=== PATIENT | female | born 1975 | race Caucasian/White ===

== ENCOUNTER 2018-03-20 08:00 | Outpatient (CLI) | payer OTHER ==
[2018-03-20 15:03] LABS: ALBUMIN 4.4 g/dL (3.2-5.5); ALBUMIN/GLOBULIN RATIO 1.8 (1.0-2.2); ALKALINE PHOSPHATASE 33 IU/L (42-121); ALT ALANINE AMINOTRANSFERASE 19 IU/L (10-60); AST ASPARTATE AMINOTRANSFERASE 19 IU/L (10-42); BILIRUBIN,TOTAL 0.7 mg/dL (0.2-1.0); BUN - BLOOD UREA NITROGEN 11 mg/dL (6-20); CALCIUM 8.9 mg/dL (8.5-10.3); CARBON DIOXIDE - CO2 28 mmol/L (21-32); CHLORIDE 101 mmol/L (101-111); CHOL/HDL RATIO 3.5 (<4.4); CHOLESTEROL 192 mg/dL; CREATININE 0.9 mg/dL (0.4-1.0); GFR - MDRD 69 (>89); GLUCOSE 90 mg/dL (70-100); HDL CHOLESTEROL 55 mg/dL; LDL CHOLESTEROL,CALCULATED 127 mg/dL; LDL/HDL RATIO 2.3 (<4.4); SODIUM 135 mmol/L (135-145); TOTAL PROTEIN 6.9 g/dL (6.7-8.2); VLDL CHOLESTEROL 10 mg/dL
[2018-03-20 15:13] LABS: BASOPHILS # (AUTO) 0.1 10^3/uL (0.0-0.1); BASOPHILS % (AUTO) 0.8 %; EOSINOPHILS # (AUTO) 0.2 10^3/uL (0.0-0.7); EOSINOPHILS % (AUTO) 2.7 %; HGB - HEMOGLOBIN 12.9 g/dL (12.0-16.0); LYMPHOCYTES # (AUTO) 3.3 10^3/uL (1.5-3.5); LYMPHOCYTES % (AUTO) 42.2 %; MEAN CORPUSCULAR HEMOGLOBIN 31.1 pg (27.0-31.0); MEAN CORPUSCULAR HGB CONC 34.8 g/dL (32.0-36.0); MEAN CORPUSCULAR VOLUME 89.4 fL (81.0-99.0); MEAN PLATELET VOLUME 8.4 fL (7.9-10.8); MONOCYTES # (AUTO) 0.5 10^3/uL (0.0-1.0); MONOCYTES % (AUTO) 5.9 %; NEUTROPHILS # (AUTO) 3.8 10^3/uL (1.5-6.6); NEUTROPHILS % (AUTO) 48.4 %; PLT - PLATELET COUNT 277 10^3/uL (130-450); RED BLOOD COUNT 4.16 10^6/uL (4.20-5.40); RED CELL DISTRIBUTION WIDTH 12.3 % (12.0-15.0); WHITE BLOOD COUNT 7.8 x10^3/uL (4.8-10.8)
== END 2018-03-20 23:59 | disposition home or self-care (01) ==
LOC: LAB.WCP 08:00
PROVIDERS: ATTEND Physician Assistant Medical
DX: Z00.00 Encounter for general adult medical examination without abnormal findings (principal)
CPT/HCPCS: 36415; 80053; 80061; 83721; 84443; 85025

== ENCOUNTER 2018-07-10 16:52 | Outpatient (CLI) | payer BC, OTHER | END 2018-07-10 16:53 | disposition home or self-care (01) | LOC: DI 16:52 | DX: Z12.31 Encounter for screening mammogram for malignant neoplasm of breast (principal) | CPT/HCPCS: 77063; 77067 ==

== ENCOUNTER 2019-03-19 07:11 | Outpatient (CLI) | payer BC, OTHER ==
[2019-03-19 13:34] LABS: BASOPHILS # (AUTO) 0.1 10^3/uL (0.0-0.1); BASOPHILS % (AUTO) 1.1 %; EOSINOPHILS # (AUTO) 0.1 10^3/uL (0.0-0.7); EOSINOPHILS % (AUTO) 1.9 %; HGB - HEMOGLOBIN 12.9 g/dL (12.0-16.0); LYMPHOCYTES # (AUTO) 3.3 10^3/uL (1.5-3.5); LYMPHOCYTES % (AUTO) 44.2 %; MEAN CORPUSCULAR HEMOGLOBIN 30.3 pg (27.0-31.0); MEAN CORPUSCULAR HGB CONC 33.5 g/dL (32.0-36.0); MEAN CORPUSCULAR VOLUME 90.4 fL (81.0-99.0); MEAN PLATELET VOLUME 10.3 fL (7.9-10.8); MONOCYTES # (AUTO) 0.5 10^3/uL (0.0-1.0); MONOCYTES % (AUTO) 7.1 %; NEUTROPHILS # (AUTO) 3.3 10^3/uL (1.5-6.6); NEUTROPHILS % (AUTO) 45.4 %; PLT - PLATELET COUNT 256 10^3/uL (130-450); RED BLOOD COUNT 4.26 10^6/uL (4.20-5.40); RED CELL DISTRIBUTION WIDTH 11.8 % (12.0-15.0); WHITE BLOOD COUNT 7.4 x10^3/uL (4.8-10.8)
[2019-03-19 14:10] LABS: ALBUMIN 4.5 g/dL (3.2-5.5); ALBUMIN/GLOBULIN RATIO 1.6 (1.0-2.2); ALKALINE PHOSPHATASE 35 IU/L (42-121); ALT ALANINE AMINOTRANSFERASE 30 IU/L (10-60); AST ASPARTATE AMINOTRANSFERASE 25 IU/L (10-42); BILIRUBIN,TOTAL 1.1 mg/dL (0.2-1.0); BUN - BLOOD UREA NITROGEN 12 mg/dL (6-20); CALCIUM 9.2 mg/dL (8.5-10.3); CARBON DIOXIDE - CO2 25 mmol/L (21-32); CHLORIDE 105 mmol/L (101-111); CHOL/HDL RATIO 3.2 (<4.4); CHOLESTEROL 213 mg/dL; CREATININE 0.8 mg/dL (0.4-1.0); GFR - MDRD 79 (>89); GLUCOSE 94 mg/dL (70-100); HDL CHOLESTEROL 66 mg/dL; LDL CHOLESTEROL,CALCULATED 134 mg/dL; SODIUM 138 mmol/L (135-145); TOTAL PROTEIN 7.3 g/dL (6.7-8.2); VLDL CHOLESTEROL 13 mg/dL
[2019-03-19 14:13] LABS: FERRITIN 16.8 ng/mL (11.0-306.8)
== END 2019-03-19 23:59 | disposition home or self-care (01) ==
LOC: LAB.WCP 07:11
PROVIDERS: ATTEND Physician Assistant Medical
DX: Z00.00 Encounter for general adult medical examination without abnormal findings (principal); Z13.89 Encounter for screening for other disorder; M25.50 Pain in unspecified joint; G43.909 Migraine, unspecified, not intractable, without status migrainosus; R53.83 Other fatigue
CPT/HCPCS: 36415; 80053; 80061; 82306; 82607; 82728; 83721; 84443; 85025

== ENCOUNTER 2019-09-05 15:38 | Outpatient (CLI) | payer OTHER ==
--- NOTE | 2019-09-06 08:13 | Mammography Report ---
BILATERAL DIGITAL SCREENING MAMMOGRAM 3D/2D: 09/05/2019 CLINICAL: Routine screening. Comparison is made to exams dated: 07/10/2018 mammogram and 03/16/2017 ultrasound - [facility]. The tissue of both breasts is extremely dense, which lowers the sensitivity of mammogra phy. No significant masses, calcifications, or other findings are seen in either breast. There has been no significant interval change. IMPRESSION: NEGATIVE There is no mammographic evidence of malignancy. A 1 year screening mammogram is recommended. This exam was interpreted at Station ID: [id number]. NOTE: For mammograms, a report in lay terms will be sent to the patient. Approximately 15% of breast malignancies will not be visualized mammographically. In the management of a palpable breast mass, a negative mammogram must not discourage biopsy of a clinically suspicious lesion. Electronically Signed By: Kacie kline/soha:09/05/2019 16:15:18 ACR BI-RADS Category 1: Negative 3341F PARENCHYMAL PATTERN: (VD) - The breast(s) demonstrate(s) extremely dense parenchyma, limiting the sen sitivity of mammography. BI-RADS CATEGORY: (1) - 1 RECOMMENDATION: (ANNUAL) - Recommend routine annual screening mammography. [id number] 1 year screening LATERALITY: (B)
== END 2019-09-05 15:39 | disposition home or self-care (01) ==
LOC: DI 15:38
DX: Z12.31 Encounter for screening mammogram for malignant neoplasm of breast (principal)
CPT/HCPCS: 77063; 77067

== ENCOUNTER 2020-10-21 08:39 | Day surgery (SDC) | payer OTHER ==
[2020-10-21] MEDS ORDERED: LACTATED RINGERS 1,000 ML IV ONE ×2 (08:52→11:13)
[2020-10-21 09:01] LABS: HCG UR QUAL NEGATIVE
--- NOTE | 2020-10-21 09:40 | ANESTHESIA ---
Pre-Anesthesia VS, & Labs - Diagnosis family history of colon cancer, blood in stool - Procedure colonoscopy Vital Signs: Temp Pulse Resp BP Pulse Ox 36.0 C L 58 L 18 121/81 H 100 10/21/20 09:10 10/21/20 09:10 10/21/20 09:10 10/21/20 09:10 10/21/20 09:10 Height: 5 ft 8 in Weight (kg): 71.8 kg Body Mass Index: 24.0 BMI Classification: Healthy weight - NPO >8 hours - Is Patient ?: No Home Medications and Allergies Home Medications: Ambulatory Orders Magnesium Citrate 400 mg PO DAILY 10/10/20 [place]-3/Dha/Epa/Fish Oil [Fish Oil [place]-3 EC 1,200 mg] 1 each PO DAILY 10/10/20 Prasterone (Dhea) [Dhea] 25 mg PO DAILY 10/10/20 Zolmitriptan [Zomig] 5 mg PO PRN PRN 10/10/20 Cholecalciferol [Vitamin D3] 1 tab PO DAILY 10/21/20 Magnesium Citrate 400 mg PO DAILY 10/10/20 [place]-3/Dha/Epa/Fish Oil [Fish Oil [place]-3 EC 1,200 mg] 1 each PO DAILY 10/10/20 Prasterone (Dhea) [Dhea] 25 mg PO DAILY 10/10/20 Zolmitriptan [Zomig] 5 mg PO PRN PRN 10/10/20 Cholecalciferol [Vitamin D3] 1 tab PO DAILY 10/21/20 Allergies/Adverse Reactions: Allergies Allergy/AdvReac Type Severity Reaction Status Date / Time caffeine AdvReac migraine Verified 10/10/20 07:48 erythromycin base AdvReac Nausea Verified 10/10/20 07:48 Anes History & Medical History - Anesthetic History Anesthesia Complications: reports: No previous complications - Medical History Cardiovascular: reports: None Pulmonary: reports: Sleep apnea, CPAP use Gastrointestinal: reports: GI bleed, Chronic constipation, Other Urinary: reports: None Musculoskeletal: reports: Fatigue, Chronic back pain Endocrine/Autoimmune: reports: None Skin: reports: None History of Cancer?: No - Surgical History General: reports: Appendectomy Exam General: Alert, Oriented x3 Dental: WNL Mouth Opening: Greater than 4 Fingerbreadths Mallampati classification: II Thyromental Distance: greater than 6 cm Respiratory: Lungs clear Cardiovascular: Regular rate Plan Anesthesia Type: Total IV Consent for Procedure(s) Verified and Reviewed: Yes Code Status: Attempt Resuscitation ASA classification: 2-Mild systemic disease Is this case an emergency?: No
[2020-10-21] MEDS ORDERED: PROPOFOL 200 MG/20 ML VIAL IVP ONE ×2 (10:28→10:58)
[2020-10-21] MEDS ORDERED: LIDOCAINE-PF 2% 10 ML AMP SUBQ ONE (10:38)
[2020-10-21 12:01] VITALS: BP 116/55
--- NOTE | 2020-10-21 15:26 | ANESTHESIA POST OP EVALUATION ---
Anesthesia Post Eval - Post Anesthesia Eval Vitals: Last Vital Signs Temp 36.3 C L 10/21/20 11:45 Pulse 55 L 10/21/20 11:45 Resp 16 10/21/20 11:45 BP 116/55 L 10/21/20 11:45 Pulse Ox 98 10/21/20 11:45 CV Function Including HR & BP: Stable Pain Control: Satisfactory Nausea & Vomiting: Negative Mental Status: Baseline Respiratory Status: Airway Patent Hydration Status: Satisfactory Anesthesia Complications: None
== END 2020-10-21 08:40 | disposition home or self-care (01) ==
LOC: SDS 08:39
PROVIDERS: ATTEND Surgery
PROC: 0DBC8ZX Excision of Ileocecal Valve, Via Natural or Artificial Opening Endoscopic, Diagnostic (ICD-10-PCS; principal; 2020-10-21 10:15)
DX: K57.30 Diverticulosis of large intestine without perforation or abscess without bleeding (principal); K64.8 Other hemorrhoids; K64.4 Residual hemorrhoidal skin tags; K59.09 Other constipation; G47.30 Sleep apnea, unspecified; F41.9 Anxiety disorder, unspecified; R53.83 Other fatigue; Z80.0 Family history of malignant neoplasm of digestive organs
CPT/HCPCS: 45380; 81025; J7120

== ENCOUNTER 2020-11-14 14:36 | Outpatient (CLI) | payer OTHER ==
--- NOTE | 2020-11-17 15:41 | Mammography Report ---
BILATERAL DIGITAL SCREENING MAMMOGRAM 3D/2D: 11/14/2020 CLINICAL: Routine screening. Comparison is made to exams dated: 09/05/2019 mammogram, 07/10/2018 mammogram, 03/16/2017 ultrasound, 06/03/2010 mammogram, and 06/03/2010 ultrasound - [facility]. The tissue of both aruna asts is extremely dense, which lowers the sensitivity of mammography. No significant masses, calcifications, or other findings are seen in either breast. There has been no significant interval change. IMPRESSION: NEGATIVE There is no mammographic evidence of malignancy. A 1 year screening mammogram is recommended. This exam was interpreted at Station ID: [id number]. NOTE: For mammograms, a report in lay terms will be sent to the patient. Approximately 15% of breast malignancies will not be visualized mammographically. In the management of a palpable breast mass, a negative mammogram must not discourage biopsy of a clinically suspicious lesion. Electronically Signed By: Enrique Reyes M.D. aty/soha:11/17/2020 07:13:31 ACR BI-RADS Category 1: Negative 3341F PARENCHYMAL PATTERN: (VD) - The breast(s) demonstrate(s) extremely dense parenchyma, limiting the sen sitivity of mammography. BI-RADS CATEGORY: (1) - 1 RECOMMENDATION: (ANNUAL) - Recommend routine annual screening mammography. [id number] 1 year screening LATERALITY: (B)
== END 2020-11-14 14:37 | disposition home or self-care (01) ==
LOC: DI 14:36
DX: Z12.31 Encounter for screening mammogram for malignant neoplasm of breast (principal)

== ENCOUNTER 2022-02-04 10:43 | Outpatient (CLI) | payer OTHER ==
--- NOTE | 2022-02-05 09:54 | Ultrasound Report ---
LIMITED ULTRASOUND OF RIGHT BREAST: 02/04/2022 CLINICAL: Patient returns today to evaluate a focal asymmetry in the right breast. Comparison is made to exams dated: 02/04/2022 mammogram, 01/01/2022 mammogram, 11/14/2020 mammogram, 09/05/2019 mammogram, 07/10/2018 mammogram, and 03/16/2017 ultrasound - [facility]. Color flow ultrasound of the right breast 9-10 o'clock region was performed. Lopez scale images of th e real-time examination were reviewed. There is a 0.9 cm x 0.5 cm x 7.9 cm wider than tall oval cyst with a smooth internal wall in the righ t breast at 10 o'clock middle depth. This oval cyst is hypoechoic with a well-defined boundary and i nternal echoes. This correlates with mammography findings. Color flow imaging demonstrates that the re is no vascularity present. There also is a benign 1.9 cm x 1 cm x 1.6 cm wider than tall oval cyst in the right breast at 9 o'cl ock posterior depth 10 cm from the nipple. This oval cyst is anechoic with a well-defined boundary a nd posterior acoustic enhancement. This correlates as an incidental finding. Color flow imaging dem onstrates that there is no vascularity present. Additionally, there is a benign 1.1 cm x 0.5 cm x 0.9 cm wider than tall oval cyst in the right breas t at 9 o'clock posterior depth 8 cm from the nipple. This oval cyst is anechoic with a well-defined boundary and posterior acoustic enhancement. This correlates with mammography findings. Color flow imaging demonstrates that there is no vascularity present. IMPRESSION: PROBABLY BENIGN The 1.9 cm x 1 cm x 1.6 cm wider than tall oval cyst in the right breast at 9 o'clock posterior depth is consistent with a simple cyst and is benign. The 1.1 cm x 0.5 cm x 0.9 cm wider than tall oval cyst in the right breast at 9 o'clock posterior dep th is consistent with a simple cyst and is benign. The 0.9 cm x 0.5 cm x 7.9 cm wider than tall oval cyst in the right breast at 10 o'clock middle depth resembles a complicated cyst versus cluster of cysts and is probably benign. A follow-up right madi mogram and an ultrasound in 6 months is recommended to demonstrate stability of this complicated cyst . No follow up required for the benign simple cysts. Findings and recommendations were conveyed to the patient during today's evaluation. This exam was interpreted at Station ID: [id number]. Electronically Signed By: Enrique Reyes M.D. aty/:02/04/2022 13:21:49 Ultrasound BI-RADS: 3 Probably benign BI-RADS CATEGORY: (3) - 3 Mammo and [place] [id number] 6 month follow-up LATERALITY: (R)
--- NOTE | 2022-02-05 09:54 | Mammography Report ---
UNILATERAL RIGHT DIGITAL DIAGNOSTIC MAMMOGRAM 3D/2D WITH SPOT COMPRESSION: 02/04/2022 CLINICAL: Patient returns today to evaluate a focal asymmetry in the right breast. Comparison is made to exams dated: 01/01/2022 mammogram, 11/14/2020 mammogram, 09/05/2019 mammogram, mammogram, and 06/03/2010 mammogram - [facility]. The right breast is extremely dense, which lowers the sensitivity of mammography (category d />75% gl andular tissue). There is a 1.2 cm oval focal asymmetry in the right breast at 9 o'clock posterior depth. This is see n in additional views. There also is a 1 cm oval equal density focal asymmetry in the right breast at 10 o'clock middle dept h. No other significant masses or calcifications are seen in the breast. IMPRESSION: INCOMPLETE: NEEDS ADDITIONAL IMAGING EVALUATION The 1.2 cm oval focal asymmetry in the right breast at 9 o'clock posterior depth resembles a cyst or a lymph node and is indeterminate. An ultrasound is recommended for further evaluation and is schedul ed to immediately follow this examination. The 1 cm oval equal density focal asymmetry in the right breast at 10 o'clock middle depth resembles a cyst or a lymph node and is indeterminate. An ultrasound is recommended for further evaluation and is scheduled to immediately follow this examination. Based on Tyrer-Cuzick model (a risk assessment model), the patient's lifetime risk is 20.7% and her 1 0 year risk is 3.7%. If a patient has an elevated risk, a more comprehensive evaluation should be con sidered and/or a referral to a genetic counselor. The [place] [employer], [employer] [place] [employer], and NCCN Guidelines advise the consideration of Breast MRI as an adjunct to screening mammog eli in patients whose "Lifetime risk to develop breast cancer" is 20% or higher. This exam was interpreted at Station ID: [id number]. NOTE: For mammograms, a report in lay terms will be sent to the patient. Approximately 15% of breast malignancies will not be visualized mammographically. In the management of a palpable breast mass, a negative mammogram must not discourage biopsy of a clinically suspicious lesion. Electronically Signed By: Enrique Reyes M.D. aty/:02/04/2022 13:14:55 ACR BI-RADS Category 0: Incomplete 3340F PARENCHYMAL PATTERN: (VD) - The breast(s) demonstrate(s) extremely dense parenchyma, limiting the sen sitivity of mammography. BI-RADS CATEGORY: (0) - 0 Ultrasound [id number] Immediate follow-up LATERALITY: (R)
== END 2022-02-04 10:44 | disposition home or self-care (01) ==
LOC: DI 10:43
PROVIDERS: ATTEND Family Medicine
DX: R92.8 Other abnormal and inconclusive findings on diagnostic imaging of breast (principal); N60.01 Solitary cyst of right breast

== ENCOUNTER 2022-09-08 07:44 | Outpatient (CLI) | payer OTHER ==
--- NOTE | 2022-09-08 10:37 | Mammography Report ---
UNILATERAL RIGHT DIGITAL DIAGNOSTIC MAMMOGRAM 3D/2D: 09/08/2022 CLINICAL: Patient returns for a 6 month follow up of the right breast. Comparison is made to exams dated: 02/04/2022 mammogram, 01/01/2022 mammogram, 11/14/2020 mammogram, and 09/05/2019 mammogram - [facility]. The right breast is extremely dense, which lowers the sensitivity of mammography (category d />75% gl andular tissue). There is a 1 cm oval equal density focal asymmetry in the right breast at 10 o'clock middle depth. T his is not significantly changed. There also is an asymmetry measuring 1.9 cm in the right breast posterior depth superior region seen on the mediolateral oblique view only. Finding is seen only on tomography. No other significant masses or calcifications are seen in the breast. IMPRESSION: INCOMPLETE: NEEDS ADDITIONAL IMAGING EVALUATION The 1 cm oval equal density focal asymmetry in the right breast at 10 o'clock middle depth is indeter minate. The asymmetry in the right breast posterior depth superior region resembles a cyst and is indetermina te. A targeted ultrasound is recommended and will immediately follow. Based on Tyrer-Cuzick model (a risk assessment model), the patient's lifetime risk is 20.7% and her 1 0 year risk is 3.9%. If a patient has an elevated risk, a more comprehensive evaluation should be con sidered and/or a referral to a genetic counselor. The [place] [employer], [employer], and NCCN Guidelines advise the consideration of Breast MRI as an adjunct to screening mammog eli in patients whose "Lifetime risk to develop breast cancer" is 20% or higher. This exam was interpreted at Station ID: [id number]. NOTE: For mammograms, a report in lay terms will be sent to the patient. Approximately 15% of breast malignancies will not be visualized mammographically. In the management of a palpable breast mass, a negative mammogram must not discourage biopsy of a clinically suspicious lesion. Electronically Signed By: Deo Andujar M.D. slc/:09/08/2022 08:26:23 ACR BI-RADS Category 0: Incomplete 3340F PARENCHYMAL PATTERN: (VD) - The breast(s) demonstrate(s) extremely dense parenchyma, limiting the sen sitivity of mammography. BI-RADS CATEGORY: (0) - 0 Ultrasound [id number] Immediate follow-up LATERALITY: (B)
--- NOTE | 2022-09-08 10:37 | Ultrasound Report ---
LIMITED ULTRASOUND OF RIGHT BREAST: 09/08/2022 CLINICAL: Patient returns for a 6 month follow up of the right breast. Comparison is made to exams dated: 09/08/2022 mammogram, 02/04/2022 ultrasound, 02/04/2022 mammogram, 01/01/2022 mammogram, 11/14/2020 mammogram, and 09/05/2019 mammogram - [facility]. Color flow and real-time ultrasound of the right breast 10 o'clock and 12 o'clock regions were perfor med. Lopez scale images of the real-time examination were reviewed. There is a stable 0.8 cm x 0.7 cm x 0.6 cm oval cyst in the right breast at 10 o'clock posterior dept h 7 cm from the nipple. This oval cyst is anechoic with a well-defined boundary, internal echoes, an d posterior acoustic enhancement. This correlates with mammography findings. Color flow imaging dem onstrates that there is no vascularity present. There also is a benign 2 cm x 1.8 cm x 0.9 cm oval simple cyst in the right breast at 12 o'clock midd le depth 3 cm from the nipple. This oval simple cyst is anechoic. This correlates with mammography findings. Color flow imaging demonstrates that there is no vascularity present. IMPRESSION: PROBABLY BENIGN Stable 0.8 cm complicated cyst in the right breast at 10 o'clock posterior depth is probably benign. The 2 cm simple cyst in the right breast at 12 o'clock middle depth is benign. A follow-up mammogram and an ultrasound in 6 months is recommended to demonstrate stability. Patient will be due for left breast mammogram at that time. Exam findings were conveyed to the patient. This exam was interpreted at Station ID: [id number]. Electronically Signed By: Deo Andujar M.D. slc/:09/08/2022 09:22:50 Ultrasound BI-RADS: 3 Probably benign BI-RADS CATEGORY: (3) - 3 Mammo and US [id number] 6 month follow-up LATERALITY: (B)
== END 2022-09-08 07:45 | disposition home or self-care (01) ==
LOC: DI 07:44
PROVIDERS: ATTEND Family Medicine
DX: N60.01 Solitary cyst of right breast (principal)

== ENCOUNTER 2023-04-01 08:13 | Outpatient (CLI) | payer OTHER ==
--- NOTE | 2023-04-01 12:48 | Mammography Report ---
BILATERAL DIGITAL DIAGNOSTIC MAMMOGRAM 3D/2D: 04/01/2023 CLINICAL: Patient returns for a 6 month follow up of the right breast, due for bilateral exam. Comparison is made to exams dated: 02/04/2022 mammogram, 09/08/2022 mammogram, 01/01/2022 mammogram, 11/14/2020 mammogram, and 09/05/2019 mammogram - [facility]. Both breasts are extremely dense, which lowers the sensitivity of mammography (category d />75% gland ular tissue). There is an oval equal density focal asymmetry in the right breast at 10 o'clock middle depth. This is not significantly changed. No other significant masses, calcifications, or other findings are seen in either breast. IMPRESSION: INCOMPLETE: NEEDS ADDITIONAL IMAGING EVALUATION The oval equal density focal asymmetry in the right breast is indeterminate. A targeted ultrasound is recommended and will immediately follow. Based on Tyrer-Cuzick model (a risk assessment model), the patient's lifetime risk is 20.7% and her 1 0 year risk is 4.2%. If a patient has an elevated risk, a more comprehensive evaluation should be con sidered and/or a referral to a genetic counselor. The [place] [employer], [place], and NCCN Guidelines advise the consideration of Breast MRI as an adjunct to screening mammog eli in patients whose "Lifetime risk to develop breast cancer" is 20% or higher. This exam was interpreted at Station ID: [id number]. NOTE: For mammograms, a report in lay terms will be sent to the patient. Approximately 15% of breast malignancies will not be visualized mammographically. In the management of a palpable breast mass, a negative mammogram must not discourage biopsy of a clinically suspicious lesion. Electronically Signed By: Deo Andujar M.D. [facility] [place]/:04/01/2023 09:12:19 ACR BI-RADS Category 0: Incomplete 3340F PARENCHYMAL PATTERN: (VD) - The breast(s) demonstrate(s) extremely dense parenchyma, limiting the sen sitivity of mammography. BI-RADS CATEGORY: (0) - 0 Ultrasound [id number] Immediate follow-up LATERALITY: (B)
--- NOTE | 2023-04-01 12:48 | Ultrasound Report ---
LIMITED ULTRASOUND OF RIGHT BREAST: 04/01/2023 CLINICAL: Right Breast 6 month follow-up of Complicated cyst. Comparison is made to exams dated: 09/08/2022 ultrasound, 09/08/2022 mammogram, 02/04/2022 ultrasound, 02/04/2022 mammogram, and 04/01/2023 mammogram - [facility]. Color flow and real-time ultrasound of the right breast 10 o'clock region were performed. Lopez scale images of the real-time examination were reviewed. There is a 0.8 cm x 0.6 cm x 0.5 cm oval cyst in the right breast at 10 o'clock posterior depth 7 cm from the nipple. This oval cyst is anechoic with a well-defined boundary, internal echoes, and poste rior acoustic enhancement. This abnormality is not significantly changed and correlates with mammogr aphy findings. Color flow imaging demonstrates that there is no vascularity present. IMPRESSION: PROBABLY BENIGN The 0.8 cm complicated cyst in the right breast is probably benign. A follow-up mammogram and an ultrasound in 12 months is recommended to demonstrate long-term stabilit y. Exam findings were conveyed to the patient. This exam was interpreted at Station ID: [id number]. Electronically Signed By: Deo Andujar M.D. [facility]/:04/01/2023 09:15:44 Ultrasound BI-RADS: 3 Probably benign BI-RADS CATEGORY: (3) - 3 Mammo and US [id number] 12 month follow-up LATERALITY: (B)
== END 2023-04-01 08:14 | disposition home or self-care (01) ==
LOC: DI 08:13
PROVIDERS: ATTEND Family Medicine
DX: N60.01 Solitary cyst of right breast (principal); R92.343 Mammographic extreme density, bilateral breasts